=== PATIENT | female | born 1990 | race Two or more races ===

== ENCOUNTER 2020-08-19 10:07 | Emergency (ER) | payer OTHER, SELFPAY ==
[2020-08-19 10:19] VITALS: BP 131/86; PULSE 83; RESP 18; TEMP 36.9; O2SAT 97; BMI 25.0
--- NOTE | 2020-08-19 10:23 | XR_ITS ---
EXAMINATION: XR CHEST CLINICAL INFORMATION: Chest pain COMPARISON: None TECHNIQUE: AP portable view of the chest was obtained. FINDINGS: No significant abnormality is noted involving the heart, lungs, mediastinum, bony thorax or soft tissues. XR/XR chest 1V IMPRESSION: No acute disease.
--- NOTE | 2020-08-19 10:24 | ED.URI ---
HPI - URI/Sore Throat General Chief Complaint: Upper Respiratory Symptoms Stated Complaint: FLU LIKE Time Seen by Provider: 08/19/20 10:23 Source: patient Mode of arrival: ambulatory Limitations: no limitations History of Present Illness HPI Narrative: 29 y/o female with no PMH presents with 2 days of worsening sore throat, chest discomfort when taking deep breaths and nausea. She has no known exposure to COVID-19. She lives with her fiance who is also having similar symptoms but has not been tested yet. She denies abdominal pain but admits to vomiting x2. She has been able to eat and drink some today. MD elicited complaint: sore throat Onset (ago): day(s) (2) Consistency: constant Severity: moderate Able to tolerate fluids by mouth: Yes Exacerbating factors: swallowing and deep breaths Relieving factors: OTC cold medicine Treatments prior to arrival: none Related Data Previous Rx's Medication Instructions Recorded hydrocodone-homatropine 5 ml PO Q6H PRN #60 ml 08/19/20 ondansetron HCl [Zofran] 4 mg PO Q8H PRN #10 tab 08/19/20 Allergies Allergy/AdvReac Type Severity Reaction Status Date / Time blueberry [BLUEBERRY] Allergy Severe THROAT Unverified 06/08/20 16:06 CLOSES adhesive tape [ADHESIVE TAPE] Allergy Intermediate RASH Unverified 06/08/20 16:06 latex [LATEX] Allergy Intermediate HIVES Verified 08/19/20 10:22 Review of Systems Review of Systems: Constitutional: No Fever, + Chills ENT/Mouth: + sore throat, No Rhinorrhea, No Swallowing Difficulty Eyes: No Eye Pain, No Swelling, No Redness Cardiovascular: + Chest Pain, + SOB Respiratory: + Cough, + Sputum, No Wheezing, No dyspnea Gastrointestinal: + Nausea, No Vomiting, No Diarrhea, No abdominal Pain Genitourinary: No Dysuria, No Urinary Frequency, No Hematuria Musculoskeletal: No joint pain, + Myalgias Skin: No Skin Lesions, No rash Neuro: + Headache Heme/Lymph: No Bruising, No Lymphadenopathy PMFSH Past Medical History Medical History Heart murmur No known health problems Social History Social History Advance Directives: No Advance Directives Information Provided: No Physical Exam Vital Signs: Vital Signs: Last Vital Signs Temp 98.5 F 08/19/20 10:19 Pulse 83 08/19/20 10:19 Resp 18 08/19/20 10:19 BP 131/86 08/19/20 10:19 Pulse Ox 97 08/19/20 10:19 Body Mass Index 25.0 Appearance: Alert. Oriented X3. No acute distress. Eyes: Pupils equal, round and reactive to light. ENT: Pharynx with mild generalized erythema, no tonsillar exudates Neck: Normal inspection. Neck supple. CVS: Normal heart rate and rhythm. Pulses normal. Respiratory: No respiratory distress. Breath sounds normal. Abdomen: Soft and nontender. +BS x4 Neuro: Oriented X 3. Non-focal Course Course Course Narrative: 29 y/o presenting with COVID-19 symptoms. Vitals are stable and her lungs are clear. Resp panel sent and she is COVID positive. Patient was counseled and management was discussed. Warning signs to come back to the ER were discussed. MDM - URI/Sore Throat Differential Diagnosis Differential diagnosis: Likely upper respiratory infection, croup, otitis media, sinusitis, viral infection, bronchitis, influenza and pharyngitis Lab Data Labs: Lab Results 08/19/20 Range/Units 10:31 Coronavirus (PCR) POSITIVE A (Negative) Influenza Type A (PCR) NEGATIVE (Negative) Influenza Type B (PCR) NEGATIVE (Negative) RSV RNA Qual (PCR) NEGATIVE (Negative) Critical Care Time Critical Care Time Critical Care Time: No Discharge Plan Discharge Clinical Impression: COVID-19 Patient Disposition: Home, Self-Care Instructions: COVID-19 (Coronavirus Disease 2019) (ED) Additional Instructions: You tested POSTIVE for COVID-19 today. Your chest x-ray was normal. Your Strep test was negative. Take over the counter cold/flu medications as needed for your symptoms. Take Motrin and/or Tylenol as needed for chest discomfort and body aches. Stay hydrated. Do not go out in public for 10-14 days, quarantine at home. If you develop shortness of breath or difficulty breathing call 911 or come back to the ER for further evaluation. Prescriptions: New ondansetron HCl [Zofran] 4 mg tablet 4 mg PO Q8H PRN (Reason: nausea and vomiting) Qty: 10 RF: 0 hydrocodone-homatropine 5-1.5 mg/5 mL syrup 5 ml PO Q6H PRN (Reason: cough) Qty: 60 RF: 0
[2020-08-19 11:16] LABS: Influenza A PCR NEGATIVE (Negative); Influenza B PCR NEGATIVE (Negative); Resp Syncy Virus RNA Qual PCR NEGATIVE (Negative); SARS COV2 PCR INHOUSE POSITIVE (Negative)
== END 2020-08-19 11:33 | disposition home or self-care (01) ==
PROVIDERS: Physician Assistant; Emergency Provider Internal Medicine; PCP Nurse Practitioner Family
DX: U07.1 COVID-19 (principal); Z79.899 Other long term (current) drug therapy
CPT/HCPCS: 0241U; 71045; 87071; 87880; 99283

== ENCOUNTER 2020-09-05 11:12 | Outpatient (REF) | payer OTHER, SELFPAY | END 2020-09-05 11:13 | disposition home or self-care (01) | LOC: HO.LAB 11:12 | PROVIDERS: Visit Provider Internal Medicine | DX: Z20.828 Contact with and (suspected) exposure to other viral communicable diseases (principal) | CPT/HCPCS: C9803; U0003 ==

== ENCOUNTER 2021-08-23 19:21 | Emergency (ER) | payer OTHER, SELFPAY ==
--- NOTE | ~2021-08-23 | US_ITS ---
EXAMINATION: US OBSTETRICAL ULTRASOUND CLINICAL INFORMATION: with pelvic pain COMPARISON: None. LMP: 07/13/2021. Gestational age by maternal dates is 5 weeks 6 days. TECHNIQUE: Transabdominal and endovaginal scanning was performed FINDINGS: A gestational sac was not seen. A yolk sac or pole was not seen. The uterus measured 7.8 x 4.0 x 5.2 cm. The endometrium appeared thickened measuring 1.4 cm. The right ovary measured 7.4 x 5.6 x 6.2 cm which includes a 6.7 x 5.0 x 5.2 cm cyst with a septation. The left ovary measures 2.3 x 2.6 x 2.9 cm and appears unremarkable. A trace amount of fluid is present in the cul-de-sac. An ectopic is not visualized. US/US OB <= 14 weeks fetus IMPRESSION: A gestational sac is not seen. The endometrium is thickened and there is a right ovarian cyst present with trace fluid. Please correlate with hCG and follow-up ultrasound.
--- NOTE | ~2021-08-23 | US_ITS ---
EXAMINATION: US OBSTETRICAL ULTRASOUND CLINICAL INFORMATION: with pelvic pain COMPARISON: None. LMP: 07/13/2021. Gestational age by maternal dates is 5 weeks 6 days. TECHNIQUE: Transabdominal and endovaginal scanning was performed FINDINGS: A gestational sac was not seen. A yolk sac or pole was not seen. The uterus measured 7.8 x 4.0 x 5.2 cm. The endometrium appeared thickened measuring 1.4 cm. The right ovary measured 7.4 x 5.6 x 6.2 cm which includes a 6.7 x 5.0 x 5.2 cm cyst with a septation. The left ovary measures 2.3 x 2.6 x 2.9 cm and appears unremarkable. A trace amount of fluid is present in the cul-de-sac. An ectopic is not visualized. US/US OB transvaginal IMPRESSION: A gestational sac is not seen. The endometrium is thickened and there is a right ovarian cyst present with trace fluid. Please correlate with hCG and follow-up ultrasound.
[2021-08-23 19:29] VITALS: BP 110/59; PULSE 84; RESP 18; TEMP 36.8; O2SAT 100; BMI 23.6
[2021-08-23 19:43] LABS: Appearance Urine CLEAR; Color Urine YELLOW; Glucose Urine UA NEG (NEG); Leukocyte Esterase Urine NEG (NEG); Nitrite Urine NEG (NEG); Urine Blood NEG (NEG); Urine Ketones NEG (NEG); Urine Protein NEG (NEG-TRACE)
[2021-08-23 19:44] LABS: UPreg QC Valid YES; Urine Pregnancy POSITIVE (NEGATIVE)
--- NOTE | 2021-08-23 20:14 | ED.PREGNANCY ---
HPI - General Chief complaint: Abdominal Pain Stated complaint: lower abd pain Time Seen by Provider: 08/23/21 19:39 Source: patient Mode of arrival: ambulatory Limitations: no limitations History of Present Illness HPI Narrative: Patient comes to the emergency room complaining of bilateral lower quadrant pain. Patient states that in late May she had intrauterine insemination. Patient states that for 4-5 days she has been having lower abdominal pressure. Patient denies vaginal bleeding, no spotting, patient's knowledge this is her 1st but is not sure if she has had previous miscarriages. Related Data Previous Rx's Medication Instructions Recorded hydrocodone-homatropine 5 mg-1.5 5 ml PO Q6H PRN #60 ml 08/19/20 mg/5 mL oral syrup ondansetron HCl 4 mg tablet 4 mg PO Q8H PRN #10 tab 08/19/20 (Zofran) Allergies Allergy/AdvReac Type Severity Reaction Status Date / Time blueberry [BLUEBERRY] Allergy Severe THROAT Verified 08/23/21 19:36 CLOSES adhesive tape [ADHESIVE TAPE] Allergy Intermediate RASH Verified 08/23/21 19:36 latex [LATEX] Allergy Intermediate HIVES Verified 08/23/21 19:36 Review of Systems Review of Systems: Constitutional : No Weight loss, No Fever, No Chills, No Night Sweats, No Fatigue, No Malaise ENT/Mouth : No Hearing loss, No Ear Pain, No Nasal Congestion, No Sinus Pain, No Hoarseness, No sore throat, No Rhinorrhea, No Swallowing Difficulty Eyes: No Eye Pain, No Swelling, No Redness, No Foreign Body, No Discharge, No Vision Changes Cardiovascular : No Chest Pain, No SOB, No Dyspnea on Exertion, No Orthopnea, No Edema, No Palpitations Respiratory : No Cough, No Sputum, No Wheezing, No Smoke Exposure, No Dyspnea Gastrointestinal : Morning nausea and vomiting, No Diarrhea, No Constipation, bilateral abdominal pressure, No Hematochezia, No Melena Genitourinary : no irregular bleeding, No Dysuria, No Urinary Frequency, No Hematuria, No Urinary Incontinence, No Urgency, No Flank Pain, No Urinary Flow Changes, No Hesitancy Musculoskeletal : No joint pain, No Myalgias, No Joint Swelling Skin : No Skin Lesions, No rash Neuro : No Weakness, No Numbness, No Paresthesias, No Loss of Consciousness, No Dizziness, No Headache Psych : No Anxiety/Panic, No Depression, No SI/HI/AH/VH, No Social Issues, Heme/Lymph: No Bruising, No Bleeding,No Lymphadenopathy Endocrine : No Polyuria, No Polydipsia, No Temperature Intolerance [facility] Past Medical History Medical History Heart murmur No known health problems Social History Social History Advance Directives: No Advance Directives Information Provided: Yes Physical Exam Vital Signs: Vital Signs: Last Vital Signs Temp 98.9 F 08/23/21 21:51 Pulse 74 08/23/21 21:51 Resp 18 08/23/21 21:51 BP 112/75 08/23/21 21:51 Pulse Ox 98 08/23/21 21:51 BMI result Body Mass Index 23.6 Const: Other: Appearance: Alert. Oriented X3. No acute distress. Well-appearing Eyes: Pupils equal, round and reactive to light. ENT: Pharynx normal. Neck: Normal inspection. Neck supple. No lymph nodes noted. No crepitus CVS: Normal heart rate and rhythm. Pulses normal. Normal S1 and S2 Respiratory: No respiratory distress. Breath sounds normal. No Wheezing. No rales Abdomen: Soft and nontender. No rigidity. No distention. good BS x4 Skin: Skin warm and dry. Normal skin color. Normal skin turgor. Extremities: No lower extremity edema. No Lacerations. No Rash Neuro: Oriented X 3. No motor deficit. No sensory deficit. Moving all extermities. No slurred speech. Course Course Course Narrative: Patient is O-positive, has no vaginal bleeding. I discussed the labs and ultrasound with the patient. Patient's hCG levels are elevated, the ultrasound did not see a gestational sac. It may represent a very early . Patient instructed to follow-up with her primary care physician and OBGYN. Patient will likely need ultrasound and HCG levels. Patient states she has an appointment pending with her OBGYN at [facility]. Patient was provided with her labs and ultrasound reports MDM - OB/Uterine Contractions Lab Data Result diagrams: 08/23/21 20:11 08/23/21 20:11 Labs: Lab Results 08/23/21 08/23/21 08/23/21 Range/Units 19:35 19:35 20:11 WBC 10.3 (4.8-10.8) X10*3/uL RBC 4.15 L (4.20-5.50) X10*6/uL Hgb 13.2 (12.0-16.0) g/dl Hct 39.7 (37.0-47.0) % MCV 95.7 (80.0-98.0) fL MCH 31.8 (27.0-33.0) pg MCHC 33.2 (31.0-35.0) g/dl RDW 12.3 (11.0-16.0) % Plt Count 319 (160-400) X10*3/uL MPV 10.5 (9.4-12.3) fL Immature Gran % (Auto) 0.3 (0.0-0.4) % Neut % (Auto) 68.9 (45-73) % Lymph % (Auto) 22.3 (20-40) % [place] % (Auto) 6.6 (2-11) % Eos % (Auto) 1.4 (0-4) % Baso % (Auto) 0.5 (0-2) % Lymph # (Auto) 2.3 (1.2-4.9) X10*3/uL [place] # (Auto) 0.7 (0.1-1.2) X10*3/uL Eos # (Auto) 0.1 (0.0-0.4) X10*3/uL Baso # (Auto) 0.1 (0.0-0.2) X10*3/uL Abs Immat Gran (auto) 0.03 (0.00-0.03) X10*3/uL Absolute Neuts (auto) 7.1 (2.0-8.3) x10*3/uL Absolute Nucleated RBC 0.000 (0.0-0.012) X10*3/uL Nucleated RBC % (auto) 0.0 (0.0-0.2) /100WBC Sodium (135-145) mmol/L Potassium (3.3-5.1) mmol/L Chloride (96-108) mmol/L Carbon Dioxide (22-29) mmol/L Anion Gap (12-20) BUN (9-16) mg/dL Creatinine (0.5-1.4) mg/dL Estim Creat Clear Calc Estimated GFR Random Glucose (60-115) mg/dL Calcium (8.4-10.2) mg/dL Total Bilirubin (0.0-1.0) mg/dL Direct Bilirubin (0.0-0.5) mg/dL AST (5-31) U/L ALT (0-31) U/L Alkaline Phosphatase (39-117) U/L Total Protein (6.5-8.0) g/dL Albumin (3.5-5.0) g/dL Beta HCG, Quant mIU/mL Urine Color YELLOW Urine Appearance CLEAR Urine pH 6.0 (5.0-8.0) Ur Specific [place] 1.020 (1.005-1.025) Urine Protein NEG (NEG-TRACE) MG/DL Urine Glucose (UA) NEG (NEG) MG/DL Urine Ketones NEG (NEG) MG/DL Urine Blood NEG (NEG) Urine Nitrite NEG (NEG) Ur Leukocyte Esterase NEG (NEG) Urine Test POSITIVE H (NEGATIVE) Blood Type 08/23/21 08/23/21 Range/Units 20:11 20:40 WBC (4.8-10.8) X10*3/uL RBC (4.20-5.50) X10*6/uL Hgb (12.0-16.0) g/dl Hct (37.0-47.0) % MCV (80.0-98.0) fL MCH (27.0-33.0) pg MCHC (31.0-35.0) g/dl RDW (11.0-16.0) % Plt Count (160-400) X10*3/uL MPV (9.4-12.3) fL Immature Gran % (Auto) (0.0-0.4) % Neut % (Auto) (45-73) % Lymph % (Auto) (20-40) % [place] % (Auto) (2-11) % Eos % (Auto) (0-4) % Baso % (Auto) (0-2) % Lymph # (Auto) (1.2-4.9) X10*3/uL [place] # (Auto) (0.1-1.2) X10*3/uL Eos # (Auto) (0.0-0.4) X10*3/uL Baso # (Auto) (0.0-0.2) X10*3/uL Abs Immat Gran (auto) (0.00-0.03) X10*3/uL Absolute Neuts (auto) (2.0-8.3) x10*3/uL Absolute Nucleated RBC (0.0-0.012) X10*3/uL Nucleated RBC % (auto) (0.0-0.2) /100WBC Sodium 137 (135-145) mmol/L Potassium 4.2 (3.3-5.1) mmol/L Chloride 104 (96-108) mmol/L Carbon Dioxide 22 (22-29) mmol/L Anion Gap 15 (12-20) BUN 21 H (9-16) mg/dL Creatinine 0.83 (0.5-1.4) mg/dL Estim Creat Clear Calc 89.9 Estimated GFR > 60 Random Glucose 88 (60-115) mg/dL Calcium 10.2 (8.4-10.2) mg/dL Total Bilirubin 0.4 (0.0-1.0) mg/dL Direct Bilirubin 0.2 (0.0-0.5) mg/dL AST 19 (5-31) U/L ALT 20 (0-31) U/L Alkaline Phosphatase 70 (39-117) U/L Total Protein 7.3 (6.5-8.0) g/dL Albumin 4.4 (3.5-5.0) g/dL Beta HCG, Quant 391 mIU/mL Urine Color Urine Appearance Urine pH (5.0-8.0) Ur Specific [place] (1.005-1.025) Urine Protein (NEG-TRACE) MG/DL Urine Glucose (UA) (NEG) MG/DL Urine Ketones (NEG) MG/DL Urine Blood (NEG) Urine Nitrite (NEG) Ur Leukocyte Esterase (NEG) Urine Test (NEGATIVE) Blood Type O Positive Imaging Data Ultrasound: Radiologist's impression: FINDINGS: A gestational sac was not seen. A yolk sac or pole was not seen. The uterus measured 7.8 x 4.0 x 5.2 cm. The endometrium appeared thickened measuring 1.4 cm. The right ovary measured 7.4 x 5.6 x 6.2 cm which includes a 6.7 x 5.0 x 5.2 cm cyst with a septation. The left ovary measures 2.3 x 2.6 x 2.9 cm and appears unremarkable. A trace amount of fluid is present in the cul-de-sac. An ectopic is not visualized. US/US OB transvaginal IMPRESSION: A gestational sac is not seen. The endometrium is thickened and there is a right ovarian cyst present with trace fluid. Please correlate with hCG and follow-up ultrasound Discharge Plan Discharge Clinical Impression: Abdominal pain Patient Disposition: Home, Self-Care Instructions: Abdominal Pain (ED) Additional Instructions: Please follow-up with your primary care physician tomorrow. If you have any worsening or new symptoms, please return to the emergency room or call 911 Prescriptions: No Action ondansetron HCl [Zofran] 4 mg tablet 4 mg PO Q8H PRN (Reason: nausea and vomiting) Qty: 10 RF: 0 hydrocodone-homatropine 5-1.5 mg/5 mL syrup 5 ml PO Q6H PRN (Reason: cough) Qty: 60 RF: 0
[2021-08-23 20:23] LABS: MANUAL DIFF FLAG NO
[2021-08-23 20:24] LABS: Basophils Absolute Auto 0.1 X10*3/uL (0.0-0.2); Basophils Percent Auto 0.5 % (0-2); Eosinophils Absolute Auto 0.1 X10*3/uL (0.0-0.4); Eosinophils Percent Auto 1.4 % (0-4); Hematocrit 39.7 % (37.0-47.0); Hemoglobin 13.2 g/dl (12.0-16.0); Imm Gran Abs Auto 0.03 X10*3/uL (0.00-0.03); Imm Gran Pct Auto 0.3 % (0.0-0.4); Lymphocytes Absolute Auto 2.3 X10*3/uL (1.2-4.9); Lymphocytes Percent Auto 22.3 % (20-40); Mean Corpuscular HGB Conc 33.2 g/dl (31.0-35.0); Mean Corpuscular Hemoglobin 31.8 pg (27.0-33.0); Mean Corpuscular Volume 95.7 fL (80.0-98.0); Mean Platelet Volume 10.5 fL (9.4-12.3); Monocytes Absolute Auto 0.7 X10*3/uL (0.1-1.2); Monocytes Percent Auto 6.6 % (2-11); Neutrophils Absolute Auto 7.1 x10*3/uL (2.0-8.3); Neutrophils Percent Auto 68.9 % (45-73); Platelet Count 319 X10*3/uL (160-400); Red Blood Count 4.15 X10*6/uL (4.20-5.50); Red Cell Distribution Width 12.3 % (11.0-16.0); White Blood Count 10.3 X10*3/uL (4.8-10.8)
[2021-08-23 20:46] LABS: Alanine Aminotransferase 20 U/L (0-31); Albumin Level 4.4 g/dL (3.5-5.0); Alkaline Phosphatase 70 U/L (39-117); Anion Gap 15 (12-20); Aspartate Amino Transferase 19 U/L (5-31); Bilirubin Direct 0.2 mg/dL (0.0-0.5); Bilirubin Total 0.4 mg/dL (0.0-1.0); Blood Urea Nitrogen 21 mg/dL (9-16); Calcium 10.2 mg/dL (8.4-10.2); Carbon Dioxide 22 mmol/L (22-29); Chloride 104 mmol/L (96-108); Creatinine Clr Calc Pharmacy 89.9; Estimated Glomerular Filt Rate > 60; Glucose Random 88 mg/dL (60-115); Potassium 4.2 mmol/L (3.3-5.1); Sodium 137 mmol/L (135-145); Total Protein 7.3 g/dL (6.5-8.0)
[2021-08-23 20:52] LABS: HCG Quantitative 391 mIU/mL
[2021-08-23 21:51] VITALS: BP 112/75; PULSE 74; RESP 18; TEMP 37.2; O2SAT 98
== END 2021-08-23 22:51 | disposition home or self-care (01) ==
PROVIDERS: Emergency Provider Emergency Medicine
DX: O26.899 Other specified pregnancy related conditions, unspecified trimester (principal); R10.30 Lower abdominal pain, unspecified; Z3A.00 Weeks of gestation of pregnancy not specified
CPT/HCPCS: 36415; 76801; 76817; 80048; 80076; 81003; 81025; 84702; 85025; 86900; 86901; 99283; 99284